=== PATIENT | male | born 1945 | race Caucasian/White ===

== ENCOUNTER → 2021-06-01 15:17 | Outpatient (CLI) | payer SELFPAY ==
[2021-06-01 15:33] LABS: Hematocrit 44.3 % (40-54); Hemoglobin 14.7 g/dL (13.0-16.5); Mean Corp Hgb Conc 33.2 g/dL (32-36); Mean Corpuscular Hgb 30.9 pg (27.0-32.0); Mean Corpuscular Volume 93.1 fL (80-94); Mean Platelet Vol. 9.2 fl (6.2-12.0); Platelet Count 223 K/mm3 (150-450); RBC Distribution Width CV 13.1 % (11.6-14.6); RBC Distribution Width SD 44.9 fl (35.1-43.9); Red Blood Count 4.76 M/mm3 (4.6-6.2); White Blood Count 10.1 K/mm3 (4.4-11.0)
[2021-06-01 15:48] LABS: Anion Gap 5 (5-15); BUN 20 mg/dL (7-18); BUN/Creat Ratio 14.8 RATIO (10-20); Calcium,Total 9.2 mg/dL (8.5-10.1); Chloride 101 mmol/L (98-107); Creatinine, Serum 1.35 mg/dL (0.70-1.30); EST Glomerular Filtration Rate 55 mL/min (>60); Est Glom Filt Rate - Afr Amer 66 mL/min (>60); Glucose 140 mg/dL (74-106); Potassium 4.2 mmol/L (3.5-5.1); Sodium Level 136 mmol/L (136-145)
== END ==
PROVIDERS: PCP Family Medicine; Referring Provider Surgery; Visit Provider Surgery
DX: Z01.818 Encounter for other preprocedural examination (principal); K40.30 Unilateral inguinal hernia, with obstruction, without gangrene, not specified as recurrent
CPT/HCPCS: 36415; 80048; 85027

== ENCOUNTER 2021-06-02 10:51 | Day surgery (SDC) | payer SELFPAY ==
--- NOTE | 2021-06-02 11:02 | EKG12_ITS ---
Test Reason : PRE OP Blood Pressure : / mmHG Vent. Rate : 072 BPM Atrial Rate : 072 BPM P-R Int : 258 ms QRS Dur : 104 ms QT Int : 390 ms P-R-T Axes : 059 055 014 degrees QTc Int : 427 ms Sinus rhythm with 1st degree A-V block Otherwise normal ECG No previous ECGs available Confirmed by FAUSTINO KRISHNA, AGUSTIN ([id number]), image editor CORBY WILKS ([id number]) on 06/07/2021 10:04:32 AM Referred By: Elmer Beltran Confirmed By:AGUSTIN HARMON MD
[2021-06-02 11:46] VITALS: BP 145/84; PULSE 67; RESP 16; TEMP 36.5; O2SAT 96; BMI 28.0
[2021-06-02] MEDS: Lactated Ringers 1,000 ML 100 ML IV ×2 (11:52→14:30)
--- NOTE | 2021-06-02 12:13 | PCM.HP.BLA ---
History and Physical Date of Admission: 06/02/21 Date of Service: 06/01/21 MR#:[id number]:[id number]: NOAH LINCOLN [employer] [facility]:[id number]:1945 Provider:Dr. Elmer Beltran MDAge/Sex: 75/M [facility]Signed Intake Vital Signs 06/01/21 14:12 Height 5 ft 11 in Weight: 213 lb BMI 29.7 BP 157/77 H Blood Pressure Location Rt brachial Position Sitting Respiration 18 Intake Visit Reasons: Hernia Chief Complaint: Left inguinal hernia Front Desk Assistant Required: No Is patient in pain?: Yes (left groin) Allergies No Known Allergies Allergy (Verified 06/01/21 14:13) Medications ibuprofen 200 mg tablet 200 mg PO Q6H PRN 06/01/21 [History Confirmed 06/01/21] saw palmetto 450 mg capsule 450 mg PO BID 06/01/21 [History Confirmed 06/01/21] vitamins A,C,F-lglv-nnekkd 14,320 unit-226 mg-200 unit capsule 1 cap PO BID 06/01/21 [History Confirmed 06/01/21] PFSH Medical History (Updated 06/01/21 @ 15:[address] Elmer Beltran MD) Incarcerated inguinal hernia, unilateral Left groin pain Social History Smoking Status: Never smoker alcohol intake: current alcohol intake frequency: a few times a month HPI HPI HPI: NOAH LINCOLN, is a 75 M who presents to the office today for a new left inguinal bulge after doing some tree trimming yesterday at his home. This finding was first noticed by patient while showering last evening as he noticed pain and a bulge in his left groin. He presented to an outside urgent care facility and the provider at the facility advised him (without examination) that he sounded have a inguinal hernia and recommended evaluation by surgery. Mr. Lincoln confirms that he has been able to have 2 normal bowel movements since this developed and has no troubles with urination. Mr. 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 He is also an avid bow ashleigh. Pertinent surgical history includes: No previous surgery ROS General General: No weight change, appetite, fatigue, colon cancer, breast cancer or weakness HEENT HEENT: No difficulty swallowing, eye injury, eye surgery, swollen glands or hoarseness Endo Endocrine: No thyroid disease, diabetes mellitus, thyroid cancer, Hair loss, heat intolerance or cold intolerance Skin Skin: No rash or changing moles Breast Breast: No left breast lump, right breast lump, nipple discharge, breast pain, abnormal mammogram, abnormal US or breast enlargement Musc Musculoskeletal: No back problems, arthritis, rheumatoid arthritis, gout or joint pain Cardio Cardiovascular: No murmur, pacemaker, heart disease, atrial fibrillation, high blood pressure, heart attack, heart stent, palpitations, shortness of breat with exertion or chest pain Psych Psychiatric: No depression, anxiety or hearing voices Resp Respiratory: No shortness of breath, No sleep apnea, No cough, No COPD, No asthma, No emphysema and No wheezing Gastro Gastrointestinal: No abdominal pain, No nausea or vomiting, No diarrhea, No constipation, No blood in stool, No acid reflux, No hemorrhoids, No ulcers, No gallbladder problem and No black,tarry stools Hernandez Hematologic: No blood thinners, No blood disorders, No bleeding, No anemia and No blood clots Neuro Neurologic: No system reviewed and no additional complaints, except as documented, No as per HPI, No abnormal gait, No abnormal hearing, No abnormal movements, No abnormal speech, No behavioral changes, No burning sensations, No confusion, No convulsions, No disequilibrium, No dizziness, No localized weakness, No frequent falls, No headache(s), No lack of coordination, No loss of vision, No memory loss, No numbness, No other visual disturbances, No radicular pain, No restless legs, No sensory deficit, No syncope, No tingling, No tremor(s), No weakness and No other Exam Const General: cooperative and no acute distress Orientation: alert, awake and oriented x3 Resp Effort & Inspection: normal respiratory effort Auscultation: clear to auscultation bilaterally, no rales, no rhonchi and no wheezes Cardio Rate: regular rate Rhythm: regular rhythm Heart Sounds: S1 normal and S2 normal GI Inspection: normal to inspection, non-distended and no scars Palpation: soft and nontender External: no inguinal lymphadenopathy Scrotum: inguinal hernia on the left (The left testicle and tissue are extremely tender-suspect incarcerated omentum) Assessment and Plan Assessment and Plan (1) Hernia: (2) Incarcerated inguinal hernia, unilateral: Status: Acute Comment: This is a 75-year-old male with acute presentation for left inguinal hernia first noticed yesterday. On exam there are scrotal contents but patient is having normal bowel function. Therefore suspect this represents incarcerated omentum. Attempted manual reduction at bedside, patient was intolerant and scrotal contents are quite edematous. Therefore, patient will require urgent hernia repair. He states as long as he requires surgery he would like to have this done sooner than later so that he can be on the mend. Orders: Orders: Basic Metabolic Profile (BMP) Today CBC-Complete Blood Cnt No Diff Today Plan - Dr. Elmer Beltran MD: Open left inguinal hernia repair with mesh under general anesthetic tomorrow 06/02/2021. Patient has been sent for preoperative labs, Covid testing, and preanesthesia assessment. I have also informed the patient that he will have to restrict his activity for at least the next 4 weeks following surgery to no more than lifting than 15 pounds. I have re-examined the patient. There are no clinical changes since yesterday. He states that he has minimal discomfort unless he is straining or working to reduce his hernia. He is urinating fine but has not had any further bowel movements since yesterday. We reviewed postoperative expectations in presence of his who is able to join him today. There are no further questions, consents have been signed, and we will plan to proceed with a left inguinal hernia repair with mesh.
--- NOTE | 2021-06-02 13:00 | LIP_PTH ---
PATIENT: NOAH DUMONT LOC: [facility] [place] U#:[id number] AGE/SX: 75/M ROOM: RE06/02/[address]: Dr. Elmer Beltran MD : 1945 BED: DIS: 06/02/2021 SPEC #: [id number] RECD: 06/05/21 09:27 STATUS: LUIS ANGEL REAlexis #: [id number] PRADIP: 06/02/21 13:[address]: Elmer Beltran DEPT: SURGICAL PATHOLOGY RECD BY: Michelle Infante ENTERED: 06/05/21 13:14 SP TYPE: LIPOMA OTHR DR: Dr. Jonh Block, DO Tissues: Soft tissues, NOS Procedures: Surgery Specimen Level III HEADER OPERATION: Open incarcerated inguinal hernia repair with mesh PRE-OP DIAGNOSIS: Incarcerated inguinal hernia TISSUE SUBMITTED: Cord lipoma MICROSCOPIC DIAGNOSIS Cord lipoma: Mature adipose tissue, consistent with lipoma. SJ:ever[place] 06/06/2021 MICROSCOPIC DESCRIPTION Slides are reviewed. GROSS DESCRIPTION Received in fixative is one container labeled with the patient's name and designated cord lipoma. The specimen consists of an irregular fragment of yellow fatty tissue measuring 4 x 2 x 0.7 cm. Serial sections do not reveal cyst formation, necrosis or hemorrhage. Intensive Care Nurse portions are submitted in one cassette. / AM:[place] 06/05/21 TC:1 CPT: 23753
[2021-06-02] MEDS: Cefazolin 2 GM in 0.9% Normal Saline 100 ML IV (13:03)
--- NOTE | 2021-06-02 14:36 | OP.PCM_ITS ---
Problems Associated Problem List Diagnoses (1) Incarcerated femoral hernia: Report of Operation Date of Procedure: 06/02/21 Pre-Operative Diagnosis: Incarcerated inguinal hernia Post-Operative Diagnosis: Incarcerated femoral hernia Surgery/Procedure Performed:: Open repair of femoral hernia with mesh Description of Surgical Findings:: ?Intact inguinal canal floor ?No evidence of indirect hernia sac ?Fat protruding through femoral space - persistent scrotal swelling on left with fluid filled sac above left testicle Surgeon: Elmer Beltran corporate quality assurance manager: Blu Hamilton Type of Anesthesia: General/Supplemental Anesthesiologist: Franco Abreu Specimen's removed: cord lipoma Estimated Blood Loss (mL): 10 Description of Procedure: After proper identification in the preoperative holding area the patient was brought to the operating room. He was positioned supine on the operating room table and underwent induction of general endotracheal anesthetic. Preoperative antibiotics were administered with 2 g Ancef. Patient's left groin was then clipped of all offending hair and prepped and draped in usual sterile fashion. Formal timeout was conducted amongst those present to confirm both patient and procedure. Then a transverse incision approximately 6 cm long was made in the left groin. This was deepened down through the subcutaneous tissue with the use of electrocautery and blunt dissection. The external oblique was opened in the direction of its fibers. I identified the ilioinguinal nerve just deep to this layer and dissected it free of the cord better excluded. The spermatic cord was encircled with a Patrice drain. The inguinal canal was then inspected and the floor was found to be entirely intact. Cord structures were inspected for possible indirect hernia sac, but only a cord lipoma was found. I then inspected the area under the lower leaflet of the external oblique/inferior to the inguinal ligament and found some bulging fat in this area. When I probed this area did not further I was able to place my finger into the abdomen. Therefore this appeared to define a femoral hernia with incarcerated fat so the fat was placed in a 2-0 Vicryl ligature and amputated. A Prolene mesh was rolled and placed into the femoral space and then tacked superiorly to the inguinal ligament I tacked it as well to the lacunar ligament medially and the soft tissue inferiorly. Laterally I could feel the femoral vein so this side was left free. I then used a eofyeq-bh-[id number] technique to approximate the lacunar ligament and the inguinal ligament to close down the femoral space on the anterior aspect of the mesh. I again looked for evidence of any indirect hernia sac but again only encountered cord lipoma so I decided to excise this lipoma due to mild bleeding with the blunt dissection. The cord structures were then returned to the inguinal canal and the external oblique fibers were closed in the direction of their orientation with a running 3-0 Vicryl. A running 2-0 Vicryl was used to close the James's. Several interrupted deep dermal stitches were used to approximate the skin edges. Then a 4-0 Monocryl was used to close the skin. Dermabond was applied as a dressing. When the drapes were removed the left scrotum remained engorged and there was clear evidence of a fluid?containing sac above the left testicle which felt very firm with palpation. The patient was awoken from general anesthetic without event and taken to PACU for ongoing recovery. I will plan to get a stat scrotal ultrasound. Grafts/Implants Used: Ultra Pro prolene mesh space lot PMB CL HX0 Complications None Admit VTE Documentation VTE Present on Admission: Yes VTE Mechan Device Prophylaxis: SCD's VTE Pharm Prophylaxis ordered?: No Procedures Digestive 40xxx-49xxx: 81092 Rerepair fem hernia blocked
[2021-06-02 14:56] VITALS: BP 145/84; BP 154/85; PULSE 72; RESP 16; TEMP 36.1; O2SAT 92
--- NOTE | 2021-06-02 15:04 | US_ITS ---
STUDY: SCROTUM ULTRASOUND REASON FOR EXAM: Male, 75 years old. Scrotal swelling, TECHNIQUE: Ultrasound evaluation of the scrotum was performed with color Doppler and static ma-scale imaging. COMPARISON: None. FINDINGS: RIGHT TESTICLE INTRATESTICULAR: There is a normal size of the right testicle. The right testicle measures 4.4 x 2.6 x 2.8 cm. There is a homogenous echotexture. There is normal arterial and normal venous vascularity. There is no demonstrated right testicular mass or cyst. EXTRATESTICULAR: The epididymis is normal in size. The epididymis head measures 0.7 x 1.1 x 0.8 cm. There is normal vascularity of the epididymis. There is no demonstrated epididymal cystic structure. There is a small hydrocele. There is no demonstrated varicocele. There is no demonstrated extratesticular mass or cyst. LEFT TESTICLE INTRATESTICULAR: There is a normal size of the left testicle. The left testicle measures 3.7 x 3.0 x 3.0 cm. There is a homogenous echotexture. There is normal arterial and normal venous vascularity. There is no demonstrated left testicular mass or cyst. EXTRATESTICULAR: The epididymis is normal in size. The epididymis head measures 1.1 x 1.4 cm. There is normal vascularity of the epididymis. There are cysts noted up to 5 mm. There is a large hydrocele. There is no demonstrated varicocele. There is no demonstrated extratesticular mass or cyst. US/Testicular with Arterial Flow IMPRESSION: Normal bilateral testicles. Large left hydrocele. Small right hydrocele. Left epididymal cysts. Electronically Signed: Lewis Elias DO at 16:52 EDT Tel [phone], Service support ,
[2021-06-02 15:10] VITALS: BP 145/84; O2SAT 90
[2021-06-02 15:13] VITALS: BP 142/78; BP 145/84; PULSE 68; RESP 16; O2SAT 95
[2021-06-02 15:36] VITALS: BP 145/84; BP 155/81; PULSE 72; RESP 16; TEMP 36.1; O2SAT 97
--- NOTE | 2021-06-02 15:44 | PCM.PN.BLA ---
Progress Note I obtained a stat bedside scrotal ultrasound. Ultrasound confirms that there is good flow to the left testicle. The visualized a large hydrocele on the left and a smaller on the right. With this representing a benign condition, I will plan to follow him up in the office for healing from today's operation and place referral for urology evaluation.
--- NOTE | 2021-06-02 15:53 | EX.PCM.DISCH ---
Discharge Instructions Diet Discharge Diet: No restrictions Activity Discharge Activity: May Shower Lifting Restrictions: Avoid lifting more than 15 pounds for the next 2 weeks after surgery Dressing / Incision Call your doctor if your incision/area has: Continuous Slow Oozing, Sudden Increased Bleeding and Foul Smelling Discharge Call your doctor if you observe: Fever of 101 or Higher and Inability to urinate Cleanse incision/area with: Soap & Water Follow Up Care Please Follow Up With: Elmer Beltran MD When: 7-10 days Test Results: Test results from this visit will be discussed in further detail at your follow-up appointment, if applicable. Discharge Plan Admission Primary Reason for Your Visit: Repair of hernia Attending Provider: Elmer Beltran Primary Care Provider: Jonh Block Instructions Patient Instructions: Hernia Repair Surgery Discharge Orders/Prescriptions Prescriptions: New oxycodone 5 mg tablet 5 mg PO Q6H PRN (Reason: pain) 5 Days Qty: 14 RF: 0 Continued saw palmetto 450 mg capsule 450 mg PO BID RF: 0 PreserVision AREDS 14,320-226-200 gvex-hk-jakh capsule 1 cap PO BID RF: 0 ibuprofen 200 mg tablet 200 mg PO Q6H PRN (Reason: Pain) RF: 0 Referrals / Follow Up: Jonh Block DO [Primary Care Provider] - Disposition Disposition (needs filled in before D/C Order can be placed): Home, Self Care
[2021-06-02 17:15] VITALS: BP 143/89; BP 145/84; PULSE 76; RESP 18; TEMP 36.9; O2SAT 95
[2021-06-02] MEDS: oxyCODONE 5 MG Tablet PO (17:22)
== END 2021-06-02 17:49 | disposition home or self-care (01) ==
LOC: SDC 10:54 → AC 10:55
PROVIDERS: PCP Family Medicine; Referring Provider Surgery; Visit Provider Surgery
PROC: (CPT 49553; principal; 2021-06-02 12:45)
DX: K41.30 Unilateral femoral hernia, with obstruction, without gangrene, not specified as recurrent (principal); K40.30 Unilateral inguinal hernia, with obstruction, without gangrene, not specified as recurrent; N43.3 Hydrocele, unspecified; D17.6 Benign lipomatous neoplasm of spermatic cord; N50.89 Other specified disorders of the male genital organs
CPT/HCPCS: 00830; 49553; 76870; 87426; 88304; 93005; 93976; J7120; C1781; J2405

== ENCOUNTER → 2021-07-03 08:31 | Outpatient (CLI) | payer MEDICARE, SELFPAY | PROVIDERS: PCP Family Medicine; Referring Provider Urology; Visit Provider Urology | DX: Z03.818 Encounter for observation for suspected exposure to other biological agents ruled out (principal) | CPT/HCPCS: 87635; C9803; U0005; U0003 ==

== ENCOUNTER → 2022-08-22 | Outpatient (CLI) | payer SELFPAY ==
--- NOTE | 2022-08-22 14:58 | CT_ITS ---
EXAM: CT LEFT LOWER EXTREMITY WITHOUT INTRAVENOUS CONTRAST CLINICAL INDICATION: ARTHRITIS L KNEE TECHNIQUE: Helically acquired images were obtained of the left lower extremity without intravenous contrast. 2-D reformats were performed by the technologist. CTDIvol = ( 18.76 ) mGy, DLP = ( 1216.75 ) mGycm This CT exam was performed using one or more of the following dose reduction techniques: automated exposure control, adjustment of the mA and/or kV according to patient size, and/or use of iterative reconstruction technique. This report was created using [employer] Scheduling report [employer] technology. COMPARISON: None. FINDINGS: BONES/JOINTS: Moderate severe tricompartmental arthrosis the knee. No acute or healing fracture or malalignment or any unusual lytic or sclerotic lesions of bone. Moderate degenerative changes involving the left hip joint. Small posterior calcaneal enthesophyte. SOFT TISSUES: Moderate to large knee joint effusion and prominent Taylor''s cyst majoring up to 5.0 cm on the axial images with a craniocaudal dimension of 8.7 cm. No evidence of cyst leakage or rupture. No soft tissue swelling or gas. No radiopaque foreign body. CT/Extremity Lower without Contra IMPRESSION: 1. Preoperative planning study showing deiejphv-xz-[id number] tricompartmental arthrosis involving the knee. 2. Moderate to large suprapatellar joint effusion with 8.7 cm Taylor''s cyst identified. 3. Ancillary findings as above. Electronically Signed: Antonio Gonzales MD at 4:13 EST ,
== END | disposition home or self-care (01) ==
LOC: CT 14:56
PROVIDERS: PCP Family Medicine; Referring Provider Student in an Organized Health Care Education/Training Program; Visit Provider Student in an Organized Health Care Education/Training Program
DX: Z01.818 Encounter for other preprocedural examination (principal); M16.12 Unilateral primary osteoarthritis, left hip; M71.20 Synovial cyst of popliteal space [Baker], unspecified knee; M17.12 Unilateral primary osteoarthritis, left knee
CPT/HCPCS: 73700

== ENCOUNTER → 2022-08-31 | Outpatient (CLI) | payer SELFPAY ==
--- NOTE | 2022-08-31 09:37 | EKG12_ITS ---
Test Reason : PRE OP Blood Pressure : / mmHG Vent. Rate : 066 BPM Atrial Rate : 066 BPM P-R Int : 210 ms QRS Dur : 098 ms QT Int : 410 ms P-R-T Axes : 006 076 015 degrees QTc Int : 429 ms Sinus rhythm with 1st degree A-V block Otherwise normal ECG Confirmed by FAUSTINO KRISHNA, AGUSTIN ([id number]), clinical editor CORBY WILKS ([id number]) on 09/04/2022 9:27:46 AM Referred By: KEVIN Confirmed By:AGUSTIN HARMON MD
--- NOTE | 2022-08-31 09:50 | RAD_ITS ---
INDICATION: PREOP EXAMINATION/TECHNIQUE: X-RAY - XR Chest 2 Views COMPARISON: None. FINDINGS: LINES/DEVICES: None. LUNGS: No consolidation, edema or effusion. Tiny granulomatous calcifications in left upper lobe and the right lower lobe. No pneumothorax. MEDIASTINUM AND CARDIOVASCULAR STRUCTURES: Cardiac silhouette not enlarged. Central airways and mediastinal contour are unremarkable. Tortuous mildly calcified aorta. BONES AND SOFT TISSUES: Dorsal spine demonstrates degenerative change. RAD/Chest PA and Lateral IMPRESSION: Old granulomatous disease. No acute cardiopulmonary pathology Electronically Signed: Devante Hutchins MD at 17:56 EST ,
[2022-08-31 11:16] LABS: Absolute Lymphocyte Count 1.82 X10^3/uL (0.83-4.51); Basophil# 0.07 X10^3/uL; Basophil% 0.9 % (0-1); Eosinophil# 0.14 X10^3/uL; Eosinophils% 1.8 % (0-5); Hematocrit 42.7 % (40-54); Hemoglobin 14.7 g/dL (13.0-16.5); Lymphocyte # 1.82 X10^3/ul (0.83-4.51); Lymphocyte % 23.7 % (19-41); Mean Corp Hgb Conc 34.4 g/dL (32-36); Mean Corpuscular Hgb 31.1 pg (27.0-32.0); Mean Corpuscular Volume 90.5 fL (80-94); Mean Platelet Vol. 9.4 fl (6.2-12.0); Monocyte# 0.63 X10^3/uL; Monocyte% 8.2 % (0-10); NRBC Flagged by Analyzer 0 % (0-5); Neutrophil # 4.99 X10^3/uL (2.7-7.7); Platelet Count 297 K/mm3 (150-450); RBC Distribution Width CV 12.3 % (11.6-14.6); RBC Distribution Width SD 40.7 fl (35.1-43.9); Red Blood Count 4.72 M/mm3 (4.6-6.2); White Blood Count 7.7 K/mm3 (4.4-11.0)
[2022-08-31 11:48] LABS: Albumin, Serum 3.3 g/dL (3.2-5.0); Anion Gap 5 (5-15); BUN 21 mg/dL (7-18); BUN/Creat Ratio 18.1 RATIO (10-20); Calcium,Total 8.9 mg/dL (8.5-10.1); Chloride 107 mmol/L (98-107); Creatinine, Serum 1.16 mg/dL (0.70-1.30); EST Glomerular Filtration Rate 65 mL/min (>60); Est Glom Filt Rate - Afr Amer 79 mL/min (>60); Glucose 98 mg/dL (74-106); Potassium 4.3 mmol/L (3.5-5.1); Sodium Level 140 mmol/L (136-145)
== END | disposition home or self-care (01) ==
PROVIDERS: PCP Family Medicine; Visit Provider Student in an Organized Health Care Education/Training Program
DX: Z01.810 Encounter for preprocedural cardiovascular examination (principal); I77.1 Stricture of artery; I44.0 Atrioventricular block, first degree
CPT/HCPCS: 36415; 71046; 80048; 82040; 85025; 93005

== ENCOUNTER → 2023-11-29 | Outpatient (CLI) | payer SELFPAY, OTHER ==
--- NOTE | 2023-11-29 08:44 | EKG12_ITS ---
Test Reason : PRE-OP Blood Pressure : / mmHG Vent. Rate : 064 BPM Atrial Rate : 064 BPM P-R Int : 260 ms QRS Dur : 102 ms QT Int : 424 ms P-R-T Axes : 066 065 081 degrees QTc Int : 437 ms Sinus rhythm with 1st degree A-V block with occasional Premature ventricular complexes Otherwise normal ECG Confirmed by Elmer Comer ([id number]), makeup editor CORBY WILKS ([id number]) on 11/29/2023 1:30:11 PM Referred By: Sabas Mitchell Confirmed By:Elmer Comer
== END | disposition home or self-care (01) ==
LOC: PSN 08:43
PROVIDERS: PCP Family Medicine; Referring Provider Urology; Visit Provider Urology
DX: Z01.810 Encounter for preprocedural cardiovascular examination (principal)
CPT/HCPCS: 93005

== ENCOUNTER → 2023-12-06 | Outpatient (CLI) | payer OTHER, SELFPAY ==
[2023-12-06 10:53] LABS: Hematocrit 44.3 % (40-54); Hemoglobin 14.9 g/dL (13.0-16.5); Mean Corp Hgb Conc 33.6 g/dL (32-36); Mean Corpuscular Volume 92.3 fL (80-94); Mean Platelet Vol. 9.4 fl (6.2-12.0); Platelet Count 230 K/mm3 (150-450); RBC Distribution Width CV 12.8 % (11.6-14.6); RBC Distribution Width SD 43.4 fl (35.1-43.9); White Blood Count 7.7 K/mm3 (4.4-11.0)
[2023-12-06 11:22] LABS: Anion Gap 4 (5-15); BUN 26 mg/dL (7-18); Chloride 108 mmol/L (98-107); Creatinine, Serum 1.18 mg/dL (0.70-1.30); EST Glomerular Filtration Rate 63 mL/min (>60); Est Glom Filt Rate - Afr Amer 77 mL/min (>60); Glucose 110 mg/dL (74-106); Potassium 4.3 mmol/L (3.5-5.1); Sodium Level 139 mmol/L (136-145)
== END | disposition home or self-care (01) ==
PROVIDERS: PCP Family Medicine; Referring Provider Urology; Visit Provider Urology
DX: Z01.812 Encounter for preprocedural laboratory examination (principal)
CPT/HCPCS: 36415; 80048; 85027

== ENCOUNTER → 2024-04-23 | Outpatient (CLI) | payer OTHER, SELFPAY ==
[2024-04-23 10:00] LABS: PSA,Total- Diagnostic 1.72 ng/mL (0.0-4.0)
== END | disposition home or self-care (01) ==
LOC: LAB 09:03
PROVIDERS: PCP Family Medicine; Referring Provider Urology; Visit Provider Urology
DX: N40.1 Benign prostatic hyperplasia with lower urinary tract symptoms (principal)
CPT/HCPCS: 36415; 84153